=== PATIENT | male | born 1995 | race Caucasian/White ===

== ENCOUNTER 2017-12-28 06:04 | Emergency (ER) | payer BC ==
[~2017-12-28] VITALS: Ht 182.9 cm; Wt 64.3 kg
[~2017-12-28 06:04] MED LIST: PSEU120T84 PO
[2017-12-28 08:53] VITALS: BP 126/79
[2017-12-28] MEDS ORDERED: ALBU8HFA PO (09:12)
[2017-12-28] MEDS ORDERED: CETI1TAB PO (09:12)
[2017-12-28] MEDS ORDERED: FLUT100D2 INH (09:33)
[2017-12-28] MEDS ORDERED: MONT10TA21 PO (09:33)
== END 2017-12-28 09:35 | disposition home or self-care (01) ==
LOC: ER 06:05
DX: J45.909 Unspecified asthma, uncomplicated (principal)
CPT/HCPCS: 99283

== ENCOUNTER 2018-04-16 14:18 | Emergency (ER) | payer BC ==
[~2018-04-16] VITALS: Ht 182.9 cm; Wt 73.3 kg
[~2018-04-16 14:18] MED LIST changes: +CETI1TAB PO; +FLUT100D2 INH; +MONT10TA21 PO
[2018-04-16 14:32] VITALS: BP 124/74
== END 2018-04-16 15:22 | disposition home or self-care (01) ==
LOC: ER 14:18
DX: K40.90 Unilateral inguinal hernia, without obstruction or gangrene, not specified as recurrent (principal); J45.909 Unspecified asthma, uncomplicated; Z88.1 Allergy status to other antibiotic agents; Z88.8 Allergy status to other drugs, medicaments and biological substances; Z79.899 Other long term (current) drug therapy
CPT/HCPCS: 99281

== ENCOUNTER 2018-09-22 10:08 | Emergency (ER) | payer BC ==
[~2018-09-22] VITALS: Ht 182.9 cm; Wt 78.2 kg
[2018-09-22 10:19] VITALS: BP 124/73
[2018-09-22] MEDS ORDERED: gentamicin 0.1% topical ointment 15gm TP ONE (11:00)
[2018-09-22] MEDS ORDERED: CLIN300C85 PO (11:09)
== END 2018-09-22 11:27 | disposition home or self-care (01) ==
LOC: ER 10:08
DX: L02.214 Cutaneous abscess of groin (principal); L53.8 Other specified erythematous conditions; J45.909 Unspecified asthma, uncomplicated; Z88.3 Allergy status to other anti-infective agents; Z88.1 Allergy status to other antibiotic agents; Z79.899 Other long term (current) drug therapy
CPT/HCPCS: 87070; 87077; 87186; 99283

== ENCOUNTER 2018-12-18 09:38 | Emergency (ER) | payer BC ==
[~2018-12-18] VITALS: Ht 182.9 cm; Wt 80.0 kg
[~2018-12-18 09:38] MED LIST changes: +CLIN-96 PO
[2018-12-18 09:53] VITALS: BP 128/77
== END 2018-12-18 11:13 | disposition home or self-care (01) ==
LOC: ER 09:39
DX: R07.89 Other chest pain (principal); J45.909 Unspecified asthma, uncomplicated; Z88.1 Allergy status to other antibiotic agents; Z79.899 Other long term (current) drug therapy; W03.XXXA Other fall on same level due to collision with another person, initial encounter; Y93.89 Activity, other specified; Y92.89 Other specified places as the place of occurrence of the external cause; Y99.8 Other external cause status
CPT/HCPCS: 71046; 99283